=== PATIENT | male | born 1950 | race Caucasian/White ===

== ENCOUNTER 2016-10-24 14:45 | Emergency (ER) | payer BC ==
[2016-10-24 16:13] VITALS: BP 124/86
--- NOTE | 2016-10-24 16:14 | UC ---
Dizzy HPI HPI Summary: 65 YO M with hx vertigo in the past, and hx Heard's palsy c/o spinning dizziness kyle in the am when he rolls to the left side since 10/19/16. Alarm clock numbers are oscillating quickly until he gets his head stabilized in one position. Occasional left ear pain, but not now. Left jaw popping when he opens his mouth wide. No facial weakness, no speech problems, no focal weakness. Has headache after the dizziness for a few minutes, but none now. States this dizziness is the same as when he had it in the past. - History Of Current Complaint Chief Complaint: UCDizziness Stated Complaint: VERTIGO-LEFT EAR PAIN,DIZZINESS Time Seen by Provider: 10/24/16 16:12 Hx Obtained From: Patient Onset/Duration: Gradual Onset, Lasting Days, Still Present Timing: Minutes - until he gets his head stabilized in one position Severity Initially: Moderate Severity Currently: Moderate Pain Intensity: 0 Pain Scale Used: 0-10 Numeric Character: Room Spinning Aggravating Factor(s): Position Change Alleviating Factor(s): Rest - one stable position Associated Signs And Symptoms: Positive: Nausea. Negative: Vomiting, Tinnitus, Chest Pain, SOB, Palpitations, Unsteady Gait, Visual Changes - Risk Factors Cardiac Risk Factors: Negative CVA Risk Factor: Negative - Allergies/Home Medications Allergies/Adverse Reactions: Allergies Allergy/AdvReac Type Severity Reaction Status Date / Time No Known Allergies Allergy Verified 10/24/16 16:13 Home Medications: Home Medications Ibuprofen TAB* [Advil TAB*] 400 mg PO ONCE PRN 10/24/16 [History Confirmed 10/24] PMH/Surg Hx/FS Hx/Imm Hx Previously Healthy: No - prior episode of Vertigo, Heard's palsy - Surgical History Surgical History: Yes Surgery Procedure, Year, and Place: Left patella tendon transplant 1969 - Family History Known Family History: Positive: Other - CVA, father - Social History Occupation: Employed Full-time Alcohol Use: Occasionally Substance Use Type: None Smoking Status (MU): Never Smoked Tobacco Review of Systems Constitutional: Negative Skin: Negative Eyes: Negative ENT: Ear Ache - left, at times, not now., Other - left jaw popping Respiratory: Negative Cardiovascular: Negative Gastrointestinal: Negative Genitourinary: Negative Motor: Negative Neurovascular: Negative Musculoskeletal: Negative Neurological: Headache - after dizziness, resolves spontaneously, Other - spinning dizziness in am with head turning Psychological: Negative All Other Systems Reviewed And Are Negative: Yes Physical Exam Triage Information Reviewed: Yes Appearance: Well-Appearing, No Pain Distress, Well-Nourished Vital Signs: Initial Vital Signs Temp 98.7 F 10/24/16 16:03 Pulse 79 10/24/16 16:03 Resp 18 10/24/16 16:03 BP 124/86 10/24/16 16:03 Pulse Ox 97 10/24/16 16:03 Vital Signs Reviewed: Yes Eyes: Positive: Conjunctiva Clear ENT: Positive: Hearing grossly normal, Pharynx normal, TM red - left. Negative : Muffled/hoarse voice Neck: Positive: Supple, Nontender, No Lymphadenopathy Respiratory: Positive: Lungs clear, Normal breath sounds, No respiratory distress Cardiovascular: Positive: RRR, No Murmur, Pulses Normal, Brisk Capillary Refill Musculoskeletal: Positive: Strength Intact, ROM Intact Neurological: Positive: Alert, Muscle Tone Normal, Other: - CNII-XII intact, motor 5/5, sensation intact Psychological Exam: Normal Skin Exam: Normal Dizzy Course/Dx - Differential Dx/Diagnosis Differential Diagnosis/HQI/PQRI: Benign Paroxysmal Positional Vertigo, Labyrinthitis, Other - OM Provider Diagnoses: vertigo. left OM. TMJ subluxation. elevated BP without dx of HTN Discharge - Discharge Plan Condition: Stable Disposition: HOME Prescriptions: Amoxicillin (*) [Amoxicillin 875 MG (*)] 875 mg PO BID #20 tab Meclizine HCl [Meclizine 25] 25 mg PO TID PRN #30 tab PRN Reason: Vertigo Patient Education Materials: Vertigo (ED) Referrals: Gilberto Wadsworth MD [Primary Care Provider] - 2 Days (regarding your visit today and your BP which was elevated today ) Marek Faulkner MD [Medical Doctor] - 7 Days Additional Instructions: If you have no improvement you may call the ENT office in [place] [phone] , or you may call the [place] office. Go to the ER if you have any new or worsening symtoms.
== END 2016-10-24 16:45 | disposition home or self-care (01) ==
LOC: UCCORT 14:45
DX: R42 Dizziness and giddiness (principal); H66.92 Otitis media, unspecified, left ear; M26.69 Other specified disorders of temporomandibular joint; R03.0 Elevated blood-pressure reading, without diagnosis of hypertension; R11.0 Nausea
CPT/HCPCS: 99202; G0463